=== PATIENT | female | born 1985 | race Caucasian/White ===

== ENCOUNTER 2017-10-29 13:41 | Emergency (ER) | payer SELFPAY ==
[2017-10-29] MEDS ORDERED: ACETAMINOPHEN 325 MG TABLET PO ONE (13:55)
[2017-10-29] MEDS ORDERED: HYDROCHLOROTHIAZIDE 12.5 MG CAPSULE PO ONE (13:58)
--- NOTE | 2017-10-29 13:58 | ER Document Report ---
ED Medical Screen (RME) - General Chief Complaint: High Blood Pressure Stated Complaint: BLOOD PRESSURE ISSUES Time Seen by Provider: 10/29/17 13:51 Notes: RAPID MEDICAL EVALUATION DISCLOSURE I have seen this patient as part of a Rapid Medical Evaluation and, if applicable, placed any initially appropriate orders. The patient will be seen and fully evaluated, including a full history and physical exam, by a provider ( in Main ED or Fast Track) when a room becomes available. 32-year-old female PMH diabetes here with complaints of intermittent headache and generalized weakness over the past few days. This morning the headache worsened and she had an episode of vomiting. She has not had any chest pain shortness of breath numbness tingling weakness vision change. She has not tried anything for the symptoms. She was sent here by her doctor for a blood pressure of 192/112. She does not have any prior history of high blood pressure nor does she take any medication for it. She infrequently sees her doctor. EXAM Alert and conversational TRAVEL OUTSIDE OF THE [place] IN LAST 30 DAYS: No - Related Data Allergies/Adverse Reactions: No Known Allergies Allergy (Verified 10/29/17 13:55) Past Medical History - Social History Chew tobacco use (# tins/day): No Frequency of alcohol use: None Drug Abuse: None - Past Medical History Cardiac Medical History: Reports: Hx Hypertension Pulmonary Medical History: Denies: Hx Tuberculosis Endocrine Medical History: Reports: Hx Diabetes Mellitus Type 2 Renal/ Medical History: Denies: Hx Peritoneal Dialysis Psychiatric Medical History: Reports: Hx Depression - Self treating with marjuiana Past Surgical History: Reports: Hx Section - 2, Hx Tubal Ligation - Immunizations Hx Diphtheria, Pertussis, Tetanus Vaccination: Yes Physical Exam - Vital signs Vitals: Temp Pulse Resp BP Pulse Ox 98.6 F 91 18 176/98 H 96 10/29/17 13:49 10/29/17 13:49 10/29/17 13:49 10/29/17 13:49 10/29/17 13:49 Course - Vital Signs Vital signs: Temp Pulse Resp BP Pulse Ox 98.6 F 91 18 176/98 H 96 10/29/17 13:49 10/29/17 13:49 10/29/17 13:49 10/29/17 13:49 10/29/17 13:49
[2017-10-29 14:58] LABS: ABSOLUTE BASOPHILS # (AUTO) 0.1 10^3/uL (0.0-0.2); ABSOLUTE EOSINOPHILS # (AUTO) 0.1 10^3/uL (0.0-0.6); ABSOLUTE LYMPHOCYTES (AUTO) 2.2 10^3/uL (0.5-4.7); ABSOLUTE MONOCYTES (AUTO) 0.9 10^3/uL (0.1-1.4); ABSOLUTE NEUT (AUTO) 10.8 10^3/uL (1.7-8.2); BASOPHILS % (AUTO) 0.4 % (0-2); EOSINOPHILS % (AUTO) 0.7 % (0-6); HEMATOCRIT 46.2 % (36.0-47.0); HEMOGLOBIN 15.8 g/dL (12.0-15.5); LYMPHOCYTES % (AUTO) 15.3 % (13-45); MEAN CORPUSCULAR HEMOGLOBIN 27.8 pg (27.0-33.4); MEAN CORPUSCULAR HGB CONC 34.2 g/dL (32.0-36.0); MEAN CORPUSCULAR VOLUME 81 fl (80-97); MONOCYTES % (AUTO) 6.5 % (3-13); PLATELET COUNT 370 10^3/uL (150-450); RED BLOOD COUNT 5.69 10^6/uL (3.72-5.28); RED CELL DISTRIBUTION WIDTH 14.1 % (11.5-14.0); SEGMENTED NEUTROPHILS % (AUTO) 77.1 % (42-78); TOTAL CELLS COUNTED % (AUTO) 100 %
[2017-10-29 15:10] LABS: ANION GAP 8 (5-19); BLOOD UREA NITROGEN 12 mg/dL (7-20); CALCIUM 8.9 mg/dL (8.4-10.2); CARBON DIOXIDE 26 mmol/L (22-30); CHLORIDE 108 mmol/L (98-107); GLUCOSE 221 mg/dL (75-110); PHOSPHORUS 3.4 mg/dL (2.5-4.5); POTASSIUM 3.7 mmol/L (3.6-5.0); SODIUM 141.7 mmol/L (137-145)
[2017-10-29 15:11] LABS: APPEARANCE,URINE CLOUDY; BILIRUBIN,URINE NEGATIVE (NEGATIVE); COLOR,URINE YELLOW; GLUCOSE, URINE 150 mg/dL (NEGATIVE); KETONES,URINE NEGATIVE (NEGATIVE); LEUKOCYTE ESTERASE,URINE LARGE (NEGATIVE); NITRITE,URINE NEGATIVE (NEGATIVE); PROTEIN,URINE >=500 mg/dL (NEGATIVE); URINE SPECIFIC GRAVITY 1.019; UROBILINOGEN,URINE NEGATIVE mg/dL (<2.0)
[2017-10-29 15:57] VITALS: BP 160/99
--- NOTE | 2017-10-29 16:07 | ER Document Report ---
ED General - General Chief Complaint: High Blood Pressure Stated Complaint: BLOOD PRESSURE ISSUES Time Seen by Provider: 10/29/17 13:51 Notes: 32-year-old female PMH diabetes here with complaints of intermittent headache and generalized weakness over the past few days. This morning the headache worsened and she had an episode of vomiting. She has not had any chest pain shortness of breath numbness tingling weakness vision change. She has not tried anything for the symptoms. She was sent here by her doctor for a blood pressure of 192/112. She does not have any prior history of high blood pressure nor does she take any medication for it. She infrequently sees her doctor. TRAVEL OUTSIDE OF THE [place] IN LAST 30 DAYS: No - Related Data Allergies/Adverse Reactions: No Known Allergies Allergy (Verified 10/29/17 13:55) Past Medical History - Social History Smoking Status: Current Every Day Smoker Chew tobacco use (# tins/day): No Frequency of alcohol use: None Drug Abuse: None Family History: None Patient has suicidal ideation: No Patient has homicidal ideation: No - Past Medical History Cardiac Medical History: Reports: Hx Hypertension Pulmonary Medical History: Denies: Hx Tuberculosis Endocrine Medical History: Reports: Hx Diabetes Mellitus Type 2 Renal/ Medical History: Denies: Hx Peritoneal Dialysis Psychiatric Medical History: Reports: Hx Depression - Self treating with marjuiana Past Surgical History: Reports: Hx Section - 2, Hx Tubal Ligation - Immunizations Hx Diphtheria, Pertussis, Tetanus Vaccination: Yes Review of Systems - Review of Systems Notes: See history of present illness for pertinent positive review of systems; otherwise all review of systems have been reviewed and are negative Physical Exam - Vital signs Vitals: Temp Pulse Resp BP Pulse Ox 98.6 F 91 18 176/98 H 96 10/29/17 13:49 10/29/17 13:49 10/29/17 13:49 10/29/17 13:49 10/29/17 13:49 - Notes Notes: PHYSICAL EXAMINATION: GENERAL: Well-appearing and in no acute distress. HEAD: Atraumatic, normocephalic. EYES: Pupils equal round and reactive to light, extraocular movements intact, sclera anicteric, conjunctiva are normal. ENT: nares patent, oropharynx clear without exudates. Moist mucous membranes. NECK: Normal range of motion, supple without lymphadenopathy LUNGS: CTAB and equal. No wheezes rales or rhonchi. HEART: Regular rate and rhythm without murmurs ABDOMEN: Soft, no tenderness. No facial grimacing/wincing upon palpation. No guarding, no rebound. EXTREMITIES: Normal range of motion, no pitting edema. No cyanosis. NEUROLOGICAL: Cranial nerves grossly intact. Normal sensory/motor exams. Normal steady gait without ataxia PSYCH: Normal mood, normal affect. SKIN: Warm, Dry, normal turgor, no rashes or lesions noted Course - Re-evaluation Re-evalutation: 10/29/17 16:03 MEDICAL DECISION MAKING Results reviewed there is a mild leukocytosis hemoglobin is normal electrolytes show minimal hypernatremia Urinalysis shows signs concerning for infection so I will prescribe an antibiotic Her blood pressure has improved significantly and is now down to 160 systolic I will start her on hydrochlorothiazide 25 mg daily Her headache is actually improved significantly after receiving BP medication here and BP improvement Have instructed her follow-up and establish care with a primary care doctor next day or few She understands agrees POC - Vital Signs Vital signs: Temp Pulse Resp BP Pulse Ox 98.0 F 75 16 160/99 H 100 10/29/17 15:55 10/29/17 15:55 10/29/17 15:55 10/29/17 15:56 10/29/17 15:55 - Laboratory Result Diagrams: 10/29/17 14:31 10/29/17 14:31 Laboratory results interpreted by me: 10/29/17 10/29/17 10/29/17 14:31 14:31 14:31 WBC 14.0 H RBC 5.69 H Hgb 15.8 H RDW 14.1 H Absolute Neutrophils 10.8 H Chloride 108 H Glucose 221 H Urine Protein >=500 H Urine Glucose (UA) 150 H Urine Blood LARGE H Ur Leukocyte Esterase LARGE H Discharge - Discharge Clinical Impression: Bacteriuria High blood pressure Qualifiers: Hypertension type: unspecified Qualified Code(s): I10 - Essential (primary) hypertension Condition: Good Disposition: HOME, SELF-CARE Additional Instructions: You were seen in the emergency department at [facility]. Finish antibiotics for UTI and do not skip any doses. Start taking the prescribed blood pressure medication daily and start keeping a 3 times daily log of your blood pressures. Please followup with your primary physician in the next few days for further management/evaluation. Please return to the emergency department for worsening of symptoms or any symptom that you deem to be concerning or life-threatening. Thank you for allowing us to be part of your care. Prescriptions: Hydrochlorothiazide 25 mg PO DAILY #7 tablet Sulfamethoxazole/Trimethoprim [Bactrim Ds Tablet] 1 each PO BID #14 tablet
== END 2017-10-29 16:08 | disposition home or self-care (01) ==
LOC: ER 13:41
DX: I10 Essential (primary) hypertension (principal); R82.71 Bacteriuria; R51 Headache; R53.1 Weakness; R11.10 Vomiting, unspecified; F17.200 Nicotine dependence, unspecified, uncomplicated; E11.9 Type 2 diabetes mellitus without complications; D72.829 Elevated white blood cell count, unspecified; E87.0 Hyperosmolality and hypernatremia
CPT/HCPCS: 36415; 80048; 81001; 81025; 83735; 84100; 85025; 99283

== ENCOUNTER 2019-08-22 17:54 | Emergency (ER) | payer SELFPAY ==
[2019-08-22] MEDS ORDERED: NORMAL SALINE 1000 ML 1,000 ML IV ONE ×2 (18:05→19:14)
[2019-08-22] MEDS ORDERED: ONDANSETRON HCL INJ/PF 4 MG/2 ML SDV IV ONE (18:19)
[2019-08-22] MEDS ORDERED: KETOROLAC TROMETHAMINE INJ/PF 30 MG/1 ML SDV IV ONE (18:19)
[2019-08-22 18:46] LABS: VENOUS BLOOD BASE EXCESS -2.9 mmol/L; VENOUS BLOOD HCO3 22.8 mmol/L (20-32); VENOUS BLOOD PCO2 42.8 mmHg (35-63); VENOUS BLOOD PH 7.34 (7.30-7.42)
[2019-08-22 18:48] LABS: ABSOLUTE LYMPHOCYTES (AUTO) 1.2 10^3/uL (0.5-4.7); ABSOLUTE MONOCYTES (AUTO) 1.8 10^3/uL (0.1-1.4); ABSOLUTE NEUT (AUTO) 13.4 10^3/uL (1.7-8.2); BASOPHILS % (AUTO) 0.3 % (0-2); HEMATOCRIT 47.3 % (36.0-47.0); HEMOGLOBIN 16.1 g/dL (12.0-15.5); LYMPHOCYTES % (AUTO) 7.1 % (13-45); MEAN CORPUSCULAR HEMOGLOBIN 29.4 pg (27.0-33.4); MEAN CORPUSCULAR HGB CONC 33.9 g/dL (32.0-36.0); MEAN CORPUSCULAR VOLUME 87 fl (80-97); MONOCYTES % (AUTO) 10.9 % (3-13); PLATELET COUNT 363 10^3/uL (150-450); RED BLOOD COUNT 5.46 10^6/uL (3.72-5.28); RED CELL DISTRIBUTION WIDTH 13.8 % (11.5-14.0); SEGMENTED NEUTROPHILS % (AUTO) 81.7 % (42-78); TOTAL CELLS COUNTED % (AUTO) 100 %; WHITE BLOOD COUNT 16.4 10^3/uL (4.0-10.5)
[2019-08-22 18:55] LABS: APPEARANCE,URINE CLOUDY; BILIRUBIN,URINE NEGATIVE (NEGATIVE); COLOR,URINE YELLOW; GLUCOSE, URINE >=500 mg/dL (NEGATIVE); KETONES,URINE NEGATIVE (NEGATIVE); PROTEIN,URINE 30 mg/dL (NEGATIVE); URINE SPECIFIC GRAVITY 1.015; UROBILINOGEN,URINE NEGATIVE mg/dL (<2.0)
[2019-08-22 19:04] LABS: ALBUMIN 4.9 g/dL (3.5-5.0); ALKALINE PHOSPHATASE 94 U/L (38-126); ANION GAP 18 (5-19); ASPARTATE AMINO TRANSFERASE 18 U/L (14-36); BILIRUBIN,DIRECT 0.4 mg/dL (0.0-0.4); BILIRUBIN,TOTAL 0.7 mg/dL (0.2-1.3); BLOOD UREA NITROGEN 39 mg/dL (7-20); CALCIUM 9.9 mg/dL (8.4-10.2); CARBON DIOXIDE 21 mmol/L (22-30); CHLORIDE 92 mmol/L (98-107); POTASSIUM 4.2 mmol/L (3.6-5.0); TOTAL PROTEIN 8.5 g/dL (6.3-8.2)
[2019-08-22 19:13] LABS: GLUCOSE 434 mg/dL (75-110)
[2019-08-22] MEDS ORDERED: CEFTRIAXONE 1 GM/D5W RTU 1 GM/50 ML RTUPB IV ONE (19:13)
--- NOTE | 2019-08-22 21:15 | ER Document Report ---
ED General - General Chief Complaint: Fever Stated Complaint: BLOOD SUGAR PROBLEM Time Seen by Provider: 08/22/19 18:04 Primary Care Provider: SANDEEP CHACON FNP-C [Primary Care Provider] - Follow up as needed Mode of Arrival: Ambulatory Information source: Patient Notes: Patient is an otherwise healthy 34-year-old female sent from the urgent care for concern of elevated blood glucose as well as dysuria. They are concerned she may have DKA or pyelonephritis. Patient reports she has been having symptoms for the last few days. She reports nausea but denies any vomiting or diarrhea. She reports low back pain bilaterally and states her blood sugars have been higher than usual. She is a known diabetic. TRAVEL OUTSIDE OF THE [place] IN LAST 30 DAYS: No - Related Data Allergies/Adverse Reactions: No Known Allergies Allergy (Verified 10/29/17 13:55) Home Medications: Metformin 500mg BID. Glipizide 500mg BID. Buprofen 500 daily. BP meds daily. Insulin 70/30 20 units daily. Humalin S/S Past Medical History - General Information source: Patient - Social History Smoking Status: Current Every Day Smoker Chew tobacco use (# tins/day): No Frequency of alcohol use: None Drug Abuse: None Family History: None Patient has suicidal ideation: No Patient has homicidal ideation: No - Past Medical History Cardiac Medical History: Reports: Hx Hypertension Pulmonary Medical History: Denies: Hx Tuberculosis Endocrine Medical History: Reports: Hx Diabetes Mellitus Type 2 Renal/ Medical History: Denies: Hx Peritoneal Dialysis Psychiatric Medical History: Reports: Hx Depression - Self treating with marjuiana Past Surgical History: Reports: Hx Section, Hx Tubal Ligation - Immunizations Hx Diphtheria, Pertussis, Tetanus Vaccination: Yes Review of Systems - Review of Systems Constitutional: Fever EENT: No symptoms reported Cardiovascular: No symptoms reported Respiratory: No symptoms reported Gastrointestinal: Abdominal pain, Nausea Genitourinary: Frequency Female Genitourinary: No symptoms reported Musculoskeletal: Back pain Skin: No symptoms reported Hematologic/Lymphatic: No symptoms reported Neurological/Psychological: No symptoms reported Physical Exam - Vital signs Vitals: Temp Pulse Resp BP Pulse Ox 101.5 F H 103 H 16 138/86 H 99 08/22/19 17:58 08/22/19 17:58 08/22/19 17:58 08/22/19 17:58 08/22/19 17:58 - Notes Notes: PHYSICAL EXAMINATION: GENERAL: Well-appearing, well-nourished and in no acute distress. HEAD: Atraumatic, normocephalic. EYES: Pupils equal round and reactive to light, extraocular movements intact, conjunctiva are normal. ENT: Nares patent, oropharynx clear without exudates. Moist mucous membranes. NECK: Normal range of motion, supple without lymphadenopathy LUNGS: Breath sounds clear to auscultation bilaterally and equal. No wheezes rales or rhonchi. HEART: Regular rate and rhythm without murmurs ABDOMEN: Soft, nontender, nondistended abdomen. No guarding, no rebound. No masses appreciated. Female : No CVA tenderness. Musculoskeletal: Normal range of motion, no pitting or edema. No cyanosis. Tenderness to palpation of bilateral lumbar paraspinous region. No vertebral tenderness, step-off or deformity. NEUROLOGICAL: Cranial nerves grossly intact. Normal speech, normal gait. Normal sensory, motor exams PSYCH: Normal mood, normal affect. SKIN: Warm, Dry, normal turgor, no rashes or lesions noted. Course - Re-evaluation Re-evalutation: Microbiology 08/22/19 18:10 Urine Culture - Final Clean Catch Midstream Escherichia Coli Laboratory 08/22/19 08/22/19 08/22/19 18:10 18:10 18:10 WBC 16.4 H RBC 5.46 H Hgb 16.1 H Hct 47.3 H MCV 87 MCH 29.4 MCHC 33.9 RDW 13.8 Plt Count 363 Lymph % (Auto) 7.1 L [place] % (Auto) 10.9 Eos % (Auto) 0.0 Baso % (Auto) 0.3 Absolute Neuts (auto) 13.4 H Absolute Lymphs (auto) 1.2 Absolute Monos (auto) 1.8 H Absolute Eos (auto) 0.0 Absolute Basos (auto) 0.0 Seg Neutrophils % 81.7 H VBG pH 7.34 VBG pCO2 42.8 VBG HCO3 22.8 VBG Base Excess -2.9 Sodium 131.2 L Potassium 4.2 Chloride 92 L Carbon Dioxide 21 L Anion Gap 18 BUN 39 H Creatinine 1.93 H Est GFR ( Amer) 36 L Est GFR (MDRD) Non-Af 30 L Glucose 434 H* POC Glucose Calcium 9.9 Total Bilirubin 0.7 Direct Bilirubin 0.4 Neonat Total Bilirubin Not Reportable Neonat Direct Bilirubin Not Reportable Neonat Indirect Bili Not Reportable AST 18 ALT 21 Alkaline Phosphatase 94 Total Protein 8.5 H Albumin 4.9 Urine Color Urine Appearance Urine pH Ur Specific [place] Urine Protein Urine Glucose (UA) Urine Ketones Urine Blood Urine Nitrite (Reflex) Urine Bilirubin Urine Urobilinogen Leukocyte Esterase Rfl Urine RBC (Auto) Urine Bacteria (Auto) Urine WBC (Reflex) Urine WBC Clumps Squamous Epi Cells Auto Urine Mucus (Auto) Urine Ascorbic Acid 08/22/19 08/22/19 08/22/19 18:10 18:41 21:20 WBC RBC Hgb Hct MCV MCH MCHC RDW Plt Count Lymph % (Auto) [place] % (Auto) Eos % (Auto) Baso % (Auto) Absolute Neuts (auto) Absolute Lymphs (auto) Absolute Monos (auto) Absolute Eos (auto) Absolute Basos (auto) Seg Neutrophils % VBG pH VBG pCO2 VBG HCO3 VBG Base Excess Sodium Potassium Chloride Carbon Dioxide Anion Gap BUN Creatinine Est GFR ( Amer) Est GFR (MDRD) Non-Af Glucose POC Glucose 409 H* 312 H Calcium Total Bilirubin Direct Bilirubin Neonat Total Bilirubin Neonat Direct Bilirubin Neonat Indirect Bili AST ALT Alkaline Phosphatase Total Protein Albumin Urine Color YELLOW Urine Appearance CLOUDY Urine pH 5.0 Ur Specific [place] 1.015 Urine Protein 30 H Urine Glucose (UA) >=500 H Urine Ketones NEGATIVE Urine Blood MODERATE H Urine Nitrite (Reflex) POSITIVE H Urine Bilirubin NEGATIVE Urine Urobilinogen NEGATIVE Leukocyte Esterase Rfl LARGE H Urine RBC (Auto) 18 Urine Bacteria (Auto) 2+ Urine WBC (Reflex) > 182 Urine WBC Clumps MANY Squamous Epi Cells Auto 3 Urine Mucus (Auto) RARE Urine Ascorbic Acid NEGATIVE Patient's work-up today shows nitrite positive urine. Her blood glucose was elevated but there was no evidence of diabetic ketoacidosis. She was given 2 L of IV fluids and her blood sugar has come down nicely. Patient can tolerate p.o. intake. She was given a gram of ceftriaxone IV here in the emergency department. She was given very strict ED return precautions as outlined in her discharge instructions. Patient stable for discharge at this time. She reports much improvement in how she feels. - Vital Signs Vital signs: Temp Pulse Resp BP Pulse Ox 99.9 F 95 16 124/64 96 08/22/19 21:18 08/22/19 21:18 08/22/19 21:18 08/22/19 21:18 08/22/19 21:18 - Laboratory Result Diagrams: 08/22/19 18:10 08/22/19 18:10 Laboratory results interpreted by me: 08/22/19 08/22/19 08/22/19 18:10 18:10 18:10 WBC 16.4 H RBC 5.46 H Hgb 16.1 H Hct 47.3 H Lymph % (Auto) 7.1 L Absolute Neuts (auto) 13.4 H Absolute Monos (auto) 1.8 H Seg Neutrophils % 81.7 H Sodium 131.2 L Chloride 92 L Carbon Dioxide 21 L BUN 39 H Creatinine 1.93 H Est GFR ( Amer) 36 L Est GFR (MDRD) Non-Af 30 L Glucose 434 H* POC Glucose Total Protein 8.5 H Urine Protein 30 H Urine Glucose (UA) >=500 H Urine Blood MODERATE H Urine Nitrite (Reflex) POSITIVE H Leukocyte Esterase Rfl LARGE H 08/22/19 08/22/19 18:41 21:20 WBC RBC Hgb Hct Lymph % (Auto) Absolute Neuts (auto) Absolute Monos (auto) Seg Neutrophils % Sodium Chloride Carbon Dioxide BUN Creatinine Est GFR ( Amer) Est GFR (MDRD) Non-Af Glucose POC Glucose 409 H* 312 H Total Protein Urine Protein Urine Glucose (UA) Urine Blood Urine Nitrite (Reflex) Leukocyte Esterase Rfl Discharge - Discharge Clinical Impression: Pyelonephritis, Hyperglycemia Condition: Stable Disposition: HOME, SELF-CARE Instructions: Pyelonephritis ([facility]) Additional Instructions: As discussed please take all medications as prescribed. Use the narcotic pain medication for severe pain only. You may also safely take ibuprofen 600 mg every 6 hours. This can be purchased [id number]. Please increase your fluid intake. Return to the emergency department if you are unable to hold down your medications specifically if your antibiotics and/or if your fevers are uncontrollable with Tylenol or ibuprofen. Prescriptions: Sulfamethoxazole/Trimethoprim [Bactrim Ds Tablet] 1 tab PO BID #28 tablet Hydrocodone/Acetaminophen [[place] 5-325 mg Tablet] 1 tab PO Q4H PRN #10 tablet PRN Reason: For Pain Ondansetron [Zofran Odt 4 mg Tablet] 1 - 2 tab PO Q4H PRN #15 tab.rapdis PRN Reason: For Nausea/Vomiting Referrals: SANDEEP CHACON, DIRECTOR SECURITY RISK MANAGEMENT-C [Primary Care Provider] - Follow up as needed
[2019-08-22 21:21] VITALS: BP 124/64
[2019-08-22] MEDS ORDERED: ONDANSETRON ODT 4 MG TAB (6 TAB/ER DISP) PO PRN (21:40)
[2019-08-22] MEDS ORDERED: HYDROCODONE/ACETAMINOPHEN 5-325 MG (6 TAB/ER DISP) PO PRN (21:40)
== END 2019-08-22 22:00 | disposition home or self-care (01) ==
LOC: ER 17:54
DX: N12 Tubulo-interstitial nephritis, not specified as acute or chronic (principal); E11.65 Type 2 diabetes mellitus with hyperglycemia; R50.9 Fever, unspecified; R10.9 Unspecified abdominal pain; R11.0 Nausea; I10 Essential (primary) hypertension; Z98.51 Tubal ligation status; Z79.4 Long term (current) use of insulin; Z79.84 Long term (current) use of oral hypoglycemic drugs
CPT/HCPCS: 99284; 96361; 96375; 96365; 36415; 87086; 82962; 85025; 87088; 80053; 81001; 87186; 82803; J1885; J2405; J7030; J0696